=== PATIENT | male | born 1930 | race Caucasian/White ===

== ENCOUNTER 2018-03-15 11:41 | Inpatient (IN) ==
[2018-03-15] MEDS ORDERED: Atropine 1% Opth Drops 100 DROP/5 ML BOTTLE OP SCH (16:06)
[2018-03-15] MEDS: Maxitrol OPTH SUSP 5 ML BOTTLE LEFT EYE SCH ×2 (17:31→20:28)
[2018-03-15] MEDS: Furosemide 20 MG TABLET PO SCH (17:31)
[2018-03-15] MEDS: *HR* OxyCODONE/APAP 5/325 TABLET PO PRN (17:31)
[2018-03-15] MEDS: Sucralfate 1 GM TABLET PO SCH ×2 (17:31→20:43)
[2018-03-15] MEDS: traMADol 50 MG TABLET PO PRN (20:43)
[2018-03-15] MEDS: Melatonin 3 MG TABLET PO PRN (20:43)
[2018-03-15] MEDS: Metoprolol XL (24 HR) Succ 25 MG TAB.ER.24H PO SCH (20:43)
[2018-03-15] MEDS ORDERED: PrednisoLONE Acetate 1% Opth 5 ML BOTTLE LEFT EYE SCH (21:00)
[2018-03-16 06:06] LABS: Basophils % 0.6 %; Eosinophils # 0.2 K/mcL (0.0-0.6); Eosinophils % 4.7 %; Hematocrit 25.6 % (37.5-50.1); Hemoglobin 8.8 g/dL (12.9-16.9); Immature Granulocytes % 0.4 % (0-4); Lymphocytes # 0.5 K/mcL (0.6-4.6); Lymphocytes % 11.1 %; Mean Corpuscular HGB Conc 34.4 g/dL (31.6-35.5); Mean Corpuscular Hemoglobin 31.8 pg (28.0-33.3); Mean Corpuscular Volume 92.4 fL (83.0-100.0); Mean Platelet Volume 9.9 fL (9.4-12.4); Monocytes # 0.5 K/mcL (0.0-1.3); Monocytes % 9.2 %; Neutrophils # 3.6 K/mcL (1.6-8.9); Platelet Count 127 K/mcL (140-400); Red Blood Count 2.77 M/mcL (4.19-5.50); Red Cell Distribution Width 14.1 % (11.5-14.5)
[2018-03-16 06:19] LABS: INR 1.2
[2018-03-16 06:22] LABS: Activated Partial Thrombo Time 29.8 Seconds (26.0-36.0)
[2018-03-16 06:31] LABS: BUN/Creatinine Ratio 24 (6-26); Blood Urea Nitrogen 30 mg/dL (8-23); Calcium 8.6 mg/dL (8.6-10.3); Carbon Dioxide 25 mEq/L (23-29); Chloride 98 mEq/L (98-107); Glucose 92 mg/dL (70-105); Osmolality,Calculated 274 (280-300); Potassium 4.3 mEq/L (3.5-5.1); Sodium 129 mEq/L (136-145); eGFR For Non-African Americans 56 (> 60)
[2018-03-16] MEDS: Furosemide 20 MG TABLET PO SCH ×2 (08:14→16:05)
[2018-03-16] MEDS: Metoprolol XL (24 HR) Succ 25 MG TAB.ER.24H PO SCH ×2 (08:14→20:50)
[2018-03-16] MEDS: Sucralfate 1 GM TABLET PO SCH ×4 (08:15→20:50)
[2018-03-16] MEDS: Maxitrol OPTH SUSP 5 ML BOTTLE LEFT EYE SCH ×4 (08:16→20:50)
[2018-03-16] MEDS ORDERED: Metoprolol XL (24 HR) Succ 25 MG TAB.ER.24H PO SCH (09:00)
--- NOTE | 2018-03-16 14:07 | Internal Med History&Physical ---
Date of Encounter: 03/16/18 Time of Encounter: 13:40 Assessment and Plan (1) Hip fracture Current visit: No Status: Acute Status post IM nailing repair. PT and OT interventions will be ordered. He will be started on Xarelto for DVT prophylaxis. Qualifiers: Encounter type: initial encounter Fracture type: closed Laterality: right Qualified Code(s): S72.001A - Fracture of unspecified part of neck of right femur, initial encounter for closed fracture (2) CKD (chronic kidney disease) stage 3, GFR 30-59 ml/min Current visit: Yes Status: Chronic Monitor renal indices. (3) Hypertension Current visit: No Status: Chronic Continue lisinopril and monitor blood pressure. Qualifiers: Hypertension type: essential hypertension Qualified Code(s): I10 - Essential (primary) hypertension (4) Dementia Current visit: No Status: Chronic Continue Aricept and Namenda Qualifiers: Dementia type: vascular dementia Dementia behavioral disturbance: without behavioral disturbance Qualified Code(s): F01.50 - Vascular dementia without behavioral disturbance (5) Atrial fibrillation Current visit: No Status: Chronic He is not on OAC. Start Xarelto for AF and DVT prophylaxis. Qualifiers: Atrial fibrillation type: persistent Qualified Code(s): I48.1 - Persistent atrial fibrillation (6) CHF (congestive heart failure) Current visit: No Status: Chronic Check BN peptide in a.m. Qualifiers: Heart failure type: diastolic Heart failure chronicity: chronic Qualified Code(s): I50.32 - Chronic diastolic (congestive) heart failure (7) Anemia Current visit: No Status: Acute Order anemia testing in a.m. Qualifiers: Anemia type: unspecified type Qualified Code(s): D64.9 - Anemia, unspecified (8) Urinary retention Current visit: Yes Status: Acute Present secondary to BPH. He was started on Flomax at [facility]. Dose will be incr eased and Proscar will be added. Internal Medicine - H&P: HPI Chief complaint: Hip fracture Admitted From: Hospital to Hospital Transfer Plans for Post Hospital Care: Home History of present illness: Mr. Sands is a 87 year old male who was transferred to [facility] swing bed after March 08 hospitalization at [facility] for right hip fracture from a fall. He underwent intramedullary nail fixation by Dr. Gottlieb. His postop course was pertinent for anemia requiring 2 units packed red blood cells transfusion. He also developed MIRIAM and required IV fluids and Negro catheter. He was discharged to [facility] swing bed for therapy prior to returning to independent living at home. [place] skeletal history is positive for previous remote right wrist fracture with nonsurgical intervention. He denies other bone joint or muscle disorders. Past Med Surg Social Fam HX - Past Medical History Medical history: atrial fibrillation, CHF, COPD, dementia, hyperlipidemia, hypertension, myocardial infarction, other Additional medical history: Bleeding ulcer in May 2017. Psychiatric history: no psych history - Past Surgical History Surgical History: no surgical history Additional surgical history: Eye surgery for detatched retina/cateract beginning of February 2018 - Social History Smoking Status: Never smoker Smokeless Tobacco Status: No Alcohol use: occasionally Drug use: none - Family History Mother History Unknown: Yes Internal Medicine - H&P: Meds Potassium Chloride [K-Tab ER] 20 meq PO DAILY 05/19/16 [History] Furosemide [Lasix] 20 mg PO BID #30 tablet 05/23/16 [Rx] Atorvastatin Calcium [Lipitor] 20 mg PO HS 05/07/17 [History] Donepezil [Aricept] 10 mg PO HS 05/07/17 [History] Metoprolol XL (24 HR) Succ [Toprol Xl] 25 mg PO BID 05/07/17 [History] Omeprazole [PriLOSEC] 40 mg PO BID #60 capsule. 06/29/17 [Rx] Sucralfate [Carafate] 1 gm PO QIDAC #90 tablet 06/29/17 [Rx] Lisinopril [Zestril] 10 mg PO DAILY 03/08/18 [History] Memantine HCl 10 mg PO BID 03/08/18 [History] Aspirin Enteric Coated [Aspirin EC] 162 mg PO DAILY tablet. 03/15/18 [Rx] Melatonin 3 mg PO HS PRN tablet 03/15/18 [Rx] Elian/Poly/Dex Opth SUSP [Maxitrol OPTH SUSP] 1 drop LEFT EYE TID bottle 03/15/18 [Rx] Tamsulosin [Flomax] 0.4 mg PO DAILY capsule 03/15/18 [Rx] Allergy/AdvReac Type Severity Reaction Status Date / Time No Known Allergies Allergy Verified 06/24/17 10:02 All Systems PM: A 10-system review of systems was performed and is negative for pertinent findings except as documented above in the HPI. Review of systems: Gen.: His weight has been stable for several months Cardiovascular: He has history of hypertension and chronic atrial fibrillation. He has had elevated BN peptide but denies a diagnosis of heart failure. No echocardiogram has been done. He denies DVT pulmonary embolus OR or angina on exertion. Respiratory: He smoked from approximately age [age] up to 3 packs per day. He denies chronic lung disease and does not use home oxygen. GI: He denies disorders of his liver gallbladder or exocrine pancreas : He had acute kidney injury during his recent [facility] stay. He appears to have chronic kidney disease stage II-III from review of labs since March 2016. He required Negro catheter insertion at [facility]. He denies known prostate disorders. Neurologic: He has a diagnosis of dementia. He denies large distribution strokes or seizures. Endocrine: He denies diabetes or thyroid disease. He has history of hyperlipidemia Hematology/oncology: He was unaware he had anemia on all labs in the past 2 years. He denies internal malignancies or other blood disorders. Psychiatric: He denies anxiety depression or other mental health issues Musko skeletal: As per history of present illness - Constitutional Vitals: Temp Pulse Resp BP Pulse Ox 98.1 F 86 16 117/61 93 03/16/18 06:42 03/16/18 06:42 03/16/18 06:42 03/16/18 06:42 03/16/18 06:42 Exam: Gen.: He is a well developed well-nourished male resting comfortably in bed who appears in no acute distress HEENT: Head is atraumatic and normocephalic. Eyes: EOMI. There is no scleral icterus. Mouth: Mucosa is moist. Neck: Supple and nontender. There is no thyromegaly or adenopathy noted. Heart: Irregularly irregular without murmurs or gallops Lungs: No wheezes or crackles are heard. Abdomen: Soft and nontender. No masses or guarding are noted. Extremities: There is no cyanosis edema or clubbing noted of his left leg. The right leg shows 1+ edema of the dorsum of the foot and lower anterior blanco. He has minimal DJD changes of his hands. Neurologic: Mental status: He is talkative and an appropriate historian. Cranial nerves: Smile is symmetric. Forehead wrinkles bilaterally. Tongue protrudes midline. EOMI. Motor: There is no pronator drift. Cerebellar: Finger to nose is intact bilaterally. Skin: Warm and dry Internal Med - H&P Results - Labs CBC & Chem 7: 03/16/18 05:33 03/16/18 05:33 Labs: Short CBC 03/16/18 Range/Units 05:33 WBC 4.9 (4.3-11.1) K/mcL Hgb 8.8 L (12.9-16.9) g/dL Hct 25.6 L (37.5-50.1) % Plt Count 127 L (140-400) K/mcL Neutrophils # 3.6 (1.6-8.9) K/mcL BMP 03/16/18 05:33 Sodium 129 L Potassium 4.3 Chloride 98 Carbon Dioxide 25 BUN 30 H Creatinine 1.23 Glucose 92 Calcium 8.6
[2018-03-16] MEDS: traMADol 50 MG TABLET PO PRN ×2 (16:05→20:52)
[2018-03-16] MEDS: Finasteride 5 MG TABLET PO SCH (18:23)
[2018-03-16] MEDS: *HR* Rivaroxaban 10 MG TABLET PO SCH (18:23)
[2018-03-16] MEDS: Melatonin 3 MG TABLET PO PRN (20:50)
[2018-03-17 05:05] LABS: Basophils % 0.4 %; Eosinophils # 0.2 K/mcL (0.0-0.6); Eosinophils % 3.2 %; Hematocrit 26.7 % (37.5-50.1); Hemoglobin 9.1 g/dL (12.9-16.9); Immature Granulocytes % 0.8 % (0-4); Lymphocytes # 0.5 K/mcL (0.6-4.6); Lymphocytes % 11.1 %; Mean Corpuscular HGB Conc 34.1 g/dL (31.6-35.5); Mean Corpuscular Hemoglobin 31.7 pg (28.0-33.3); Mean Platelet Volume 10.2 fL (9.4-12.4); Monocytes # 0.4 K/mcL (0.0-1.3); Monocytes % 8.4 %; Neutrophils # 3.6 K/mcL (1.6-8.9); Platelet Count 141 K/mcL (140-400); Red Blood Count 2.87 M/mcL (4.19-5.50); Red Cell Distribution Width 14.2 % (11.5-14.5); Segmented Neutrophils % 76.1 %
[2018-03-17 05:33] LABS: Alanine Aminotransferase 4 Units/L (7-52); Albumin 3.6 g/dL (3.5-5.7); Albumin/Globulin Ratio 1.6 (1.1-2.2); Alkaline Phosphatase 52 Units/L (34-104); Aspartate Amino Transferase 14 Units/L (13-39); BUN/Creatinine Ratio 27 (6-26); Bilirubin,Total 1.1 mg/dL (0.3-1.0); Blood Urea Nitrogen 34 mg/dL (8-23); Calcium 8.8 mg/dL (8.6-10.3); Carbon Dioxide 26 mEq/L (23-29); Chloride 98 mEq/L (98-107); Globulin 2.3 g/dL (2.4-3.5); Glucose 98 mg/dL (70-105); Osmolality,Calculated 276 (280-300); Potassium 4.5 mEq/L (3.5-5.1); Sodium 129 mEq/L (136-145); Total Protein 5.9 g/dL (6.4-8.9); eGFR For Non-African Americans 55 (> 60)
[2018-03-17] MEDS: Sucralfate 1 GM TABLET PO SCH ×2 (08:01→15:35)
[2018-03-17] MEDS: Maxitrol OPTH SUSP 5 ML BOTTLE LEFT EYE SCH ×4 (08:02→20:18)
[2018-03-17] MEDS: Furosemide 20 MG TABLET PO SCH (08:02)
[2018-03-17] MEDS: Metoprolol XL (24 HR) Succ 25 MG TAB.ER.24H PO SCH ×2 (08:04→20:18)
[2018-03-17] MEDS: Finasteride 5 MG TABLET PO SCH (08:06)
[2018-03-17 08:58] LABS: % Iron Saturation 17 % (20-55); Iron 40 mcg/dL (65-175); Transferrin 172 mg/dL (203-362)
[2018-03-17 09:16] LABS: Ferritin 172 ng/mL (20-250)
[2018-03-17 09:21] LABS: Folate 11.2 ng/mL (3.0-16.0)
[2018-03-17] MEDS ORDERED: Cyanocobalamin (B-12) 1,000 MCG/ML VIAL IM ONE (11:42)
[2018-03-17] MEDS: *HR* OxyCODONE/APAP 5/325 TABLET PO PRN ×2 (11:48→18:57)
--- NOTE | 2018-03-17 11:50 | Internal Med Progress Note ---
Date of Encounter: 03/17/18 Time of Encounter: 11:40 - Assessment and plan (1) Hip fracture Current Visit: No Status: Acute Assessment and plan: March 17. Status post IM nailing repair. Continue PT and OT intervention with Xarelto. Qualifiers: Encounter type: initial encounter Fracture type: closed Laterality: right Qualified Code(s): S72.001A - Fracture of unspecified part of neck of right femur, initial encounter for closed fracture (2) CKD (chronic kidney disease) stage 3, GFR 30-59 ml/min Current Visit: Yes Status: Chronic Assessment and plan: March 17. Monitor renal indices. (3) Hypertension Current Visit: No Status: Chronic Assessment and plan: March 17. Continue lisinopril and metoprolol and monitor blood pressure. Qualifiers: Hypertension type: essential hypertension Qualified Code(s): I10 - Essential (primary) hypertension (4) Dementia Current Visit: No Status: Chronic Assessment and plan: March 17. Continue Aricept and Namenda Qualifiers: Dementia type: vascular dementia Dementia behavioral disturbance: without behavioral disturbance Qualified Code(s): F01.50 - Vascular dementia without behavioral disturbance (5) Atrial fibrillation Current Visit: No Status: Chronic Assessment and plan: March 17. Continue Xarelto and metoprolol. Qualifiers: Atrial fibrillation type: persistent Qualified Code(s): I48.1 - Persistent atrial fibrillation (6) CHF (congestive heart failure) Current Visit: No Status: Chronic Assessment and plan: March 17. BN peptide pending. Reduce Lasix to 20 mg daily because of azotemia. Qualifiers: Heart failure type: diastolic Heart failure chronicity: chronic Qualified Code(s): I50.32 - Chronic diastolic (congestive) heart failure (7) Anemia Current Visit: No Status: Acute Assessment and plan: March 17. Anemia testing showed iron 40, transferrin saturation 70%, transferrin 172, ferritin 172, B12 239, and folate 11.2. He will be given a B12 injection and started on oral B12 supplement. Ferrous sulfate and ascorbic acid will also be started. Qualifiers: Anemia type: unspecified type Qualified Code(s): D64.9 - Anemia, unspe cified (8) Urinary retention Current Visit: Yes Status: Acute Assessment and plan: March 17. Continue Proscar and Flomax. Attempt discontinuation of catheter tomorrow. - Subjective Interval history: March 17. He has no new complaints. He states he feels the urge to urinate but had forgotten he had a Negro catheter in place. - Constitutional Vitals: Temp Pulse Resp BP Pulse Ox 98.2 F 77 17 131/54 94 03/17/18 06:36 03/17/18 06:36 03/17/18 06:36 03/17/18 06:36 03/17/18 08:15 Exam: He is sitting in a chair at bedside resting comfortably and appears in no acute distress. His affect is overall cheerful. Edema in his right leg is not changed. There is no left leg edema. I reviewed his medications and lab results. Internal Medicine: Result - Labs CBC & Chem 7: 03/17/18 04:31 03/17/18 04:31 Labs: Short CBC 03/17/18 Range/Units 04:31 WBC 4.8 (4.3-11.1) K/mcL Hgb 9.1 L (12.9-16.9) g/dL Hct 26.7 L (37.5-50.1) % Plt Count 141 (140-400) K/mcL Neutrophils # 3.6 (1.6-8.9) K/mcL BMP 03/17/18 04:31 Sodium 129 L Potassium 4.5 Chloride 98 Carbon Dioxide 26 BUN 34 H Creatinine 1.25 Glucose 98 Calcium 8.8 Liver Function 03/17/18 Range/Units 04:31 Total Bilirubin 1.1 H (0.3-1.0) mg/dL AST 14 (13-39) Units/L ALT 4 L (7-52) Units/L Alkaline Phosphatase 52 (34-104) Units/L Albumin 3.6 (3.5-5.7) g/dL - ABG Interpretation ABG results: PT/INR, D-dimer PT 13.0 Seconds (9.4-12.1) H 03/16/18 05:33 Consult Discharge Plan - Plan Referrals: NONE,PCP [Primary Care Provider] - 1 week
[2018-03-17] MEDS: *HR* Rivaroxaban 10 MG TABLET PO SCH (16:57)
[2018-03-17] MEDS: Melatonin 3 MG TABLET PO PRN (20:18)
[2018-03-18] MEDS: Ascorbic Acid 500 MG TABLET PO SCH (06:55)
[2018-03-18] MEDS: Metoprolol XL (24 HR) Succ 25 MG TAB.ER.24H PO SCH ×2 (09:14→20:27)
[2018-03-18] MEDS: Furosemide 20 MG TABLET PO SCH (09:16)
[2018-03-18] MEDS: Finasteride 5 MG TABLET PO SCH (09:16)
[2018-03-18] MEDS: Cyanocobalamin (B-12) 1,000 MCG TABLET PO SCH (09:17)
[2018-03-18] MEDS: Maxitrol OPTH SUSP 5 ML BOTTLE LEFT EYE SCH ×4 (09:18→20:27)
[2018-03-18] MEDS: *HR* OxyCODONE/APAP 5/325 TABLET PO PRN ×2 (11:53→23:35)
[2018-03-18] MEDS: *HR* Rivaroxaban 10 MG TABLET PO SCH (17:36)
[2018-03-18] MEDS: Melatonin 3 MG TABLET PO PRN (23:36)
[2018-03-18] MEDS ORDERED: Albuterol 2.5 MG/3 ML NEBULIZER IH PRN (23:54)
[2018-03-18] MEDS ORDERED: Benzonatate 100 MG CAPSULE PO PRN (23:55)
[2018-03-19] MEDS: Ascorbic Acid 500 MG TABLET PO SCH (06:44)
[2018-03-19 06:57] LABS: Basophils % 0.3 %; Eosinophils # 0.1 K/mcL (0.0-0.6); Eosinophils % 1.9 %; Hematocrit 27.5 % (37.5-50.1); Immature Granulocytes % 0.3 % (0-4); Lymphocytes # 0.6 K/mcL (0.6-4.6); Lymphocytes % 8.8 %; Mean Corpuscular HGB Conc 32.7 g/dL (31.6-35.5); Mean Corpuscular Hemoglobin 31.5 pg (28.0-33.3); Mean Corpuscular Volume 96.2 fL (83.0-100.0); Mean Platelet Volume 9.8 fL (9.4-12.4); Monocytes # 0.5 K/mcL (0.0-1.3); Monocytes % 7.7 %; Neutrophils # 5.1 K/mcL (1.6-8.9); Platelet Count 146 K/mcL (140-400); Red Blood Count 2.86 M/mcL (4.19-5.50); Red Cell Distribution Width 14.2 % (11.5-14.5)
[2018-03-19] MEDS: Cyanocobalamin (B-12) 1,000 MCG TABLET PO SCH (08:31)
[2018-03-19] MEDS: Furosemide 20 MG TABLET PO SCH (08:31)
[2018-03-19] MEDS: *HR* OxyCODONE/APAP 5/325 TABLET PO PRN ×2 (08:32→18:51)
[2018-03-19] MEDS: Finasteride 5 MG TABLET PO SCH (08:32)
[2018-03-19] MEDS: Metoprolol XL (24 HR) Succ 25 MG TAB.ER.24H PO SCH ×2 (08:33→20:56)
[2018-03-19] MEDS: Maxitrol OPTH SUSP 5 ML BOTTLE LEFT EYE SCH ×4 (08:35→20:57)
[2018-03-19] MEDS: traMADol 50 MG TABLET PO PRN (11:38)
--- NOTE | 2018-03-19 15:32 | Internal Med Progress Note ---
Date of Encounter: 03/19/18 Time of Encounter: 15:25 - Assessment and plan (1) Hip fracture Current Visit: No Status: Acute Assessment and plan: March 17. Status post IM nailing repair. Continue PT and OT intervention with Xarelto. Qualifiers: Encounter type: initial encounter Fracture type: closed Laterality: right Qualified Code(s): S72.001A - Fracture of unspecified part of neck of right femur, initial encounter for closed fracture (2) CKD (chronic kidney disease) stage 3, GFR 30-59 ml/min Current Visit: Yes Status: Chronic Assessment and plan: March 17. Monitor renal indices. (3) Hypertension Current Visit: No Status: Chronic Assessment and plan: March 17. Continue lisinopril and metoprolol and monitor blood pressure. Qualifiers: Hypertension type: essential hypertension Qualified Code(s): I10 - Essential (primary) hypertension (4) Dementia Current Visit: No Status: Chronic Assessment and plan: March 17. Continue Aricept and Namenda Qualifiers: Dementia type: vascular dementia Dementia behavioral disturbance: without behavioral disturbance Qualified Code(s): F01.50 - Vascular dementia without behavioral disturbance (5) Atrial fibrillation Current Visit: No Status: Chronic Assessment and plan: March 17. Continue Xarelto and metoprolol. Qualifiers: Atrial fibrillation type: persistent Qualified Code(s): I48.1 - Persistent atrial fibrillation (6) CHF (congestive heart failure) Current Visit: No Status: Chronic Assessment and plan: March 17. BN peptide pending. Reduce Lasix to 20 mg daily because of azotemia. March 19. Review of [place] archives show echocardiogram 05/08/2017 with LVEF of 55%. There was mild concentric LVH with the interventricular septum and posterior wall thickness measurements elevated at 1.36 and 1.37 cm respectively. There was LAE at 4.20 cm. There was reported severe BERNIE without measurement recorded. E/A ratio could not be done because of atrial fibrillation. There was elevated RVSP estimated at 56 mmHg. He is asymptomatic at present. Continue present regimen. Qualifiers: Heart failure type: diastolic Heart failure chronicity: chronic Qualified Code(s): I50.32 - Chronic diastolic (congestive) heart failure (7) Anemia Current Visit: No Status: Acute Assessment and plan: March 17. Anemia testing showed iron 40, transferrin saturation 70%, transferrin 172, ferritin 172, B12 239, and folate 11.2. He will be given a B12 injection and started on oral B12 supplement. Ferrous sulfate and ascorbic acid will also be started. March 19. Monitor CBC. Continue ferrous sulfate and ascorbic acid with oral B12 supplement. Qualifiers: Anemia type: unspecified type Qualified Code(s): D64.9 - Anemia, unspecified (8) Urinary retention Current Visit: Yes Status: Acute Assessment and plan: March 17. Continue Proscar and Flomax. Attempt discontinuation of catheter tomorrow. - Subjective Interval history: March 17. He has no new complaints. He states he feels the urge to urinate but had forgotten he had a Negro catheter in place. March 19. He has no new complaints. He denies pain. - Constitutional Vitals: Temp Pulse Resp BP Pulse Ox 97.9 F 75 18 136/61 99 03/19/18 06:47 03/19/18 06:47 03/19/18 06:47 03/19/18 06:47 03/19/18 06:47 Exam: He is resting comfortably in bed and appears in no acute distress. His affect is bright and cheerful. I reviewed his medications and lab results. Internal Medicine: Result - Labs CBC & Chem 7: 03/19/18 06:39 03/17/18 04:31 Labs: Short CBC 03/19/18 Range/Units 06:39 WBC 6.2 (4.3-11.1) K/mcL Hgb 9.0 L (12.9-16.9) g/dL Hct 27.5 L (37.5-50.1) % Plt Count 146 (140-400) K/mcL Neutrophils # 5.1 (1.6-8.9) K/mcL - ABG Interpretation ABG results: PT/INR, D-dimer PT 13.0 Seconds (9.4-12.1) H 03/16/18 05:33 Consult Discharge Plan - Plan Referrals: NONE,PCP [Primary Care Provider] - 1 week
[2018-03-19] MEDS: *HR* Rivaroxaban 10 MG TABLET PO SCH (17:35)
[2018-03-19] MEDS: Melatonin 3 MG TABLET PO PRN (20:56)
[2018-03-20] MEDS: *HR* OxyCODONE/APAP 5/325 TABLET PO PRN ×4 (03:48→21:28)
[2018-03-20] MEDS: Ascorbic Acid 500 MG TABLET PO SCH (06:13)
[2018-03-20] MEDS: Furosemide 20 MG TABLET PO SCH (08:10)
[2018-03-20] MEDS: Finasteride 5 MG TABLET PO SCH (08:11)
[2018-03-20] MEDS: Cyanocobalamin (B-12) 1,000 MCG TABLET PO SCH (08:11)
[2018-03-20] MEDS: Metoprolol XL (24 HR) Succ 25 MG TAB.ER.24H PO SCH ×2 (08:11→21:29)
[2018-03-20] MEDS: Maxitrol OPTH SUSP 5 ML BOTTLE LEFT EYE SCH ×4 (08:16→21:29)
[2018-03-20] MEDS: *HR* Rivaroxaban 10 MG TABLET PO SCH (16:23)
[2018-03-20] MEDS: Melatonin 3 MG TABLET PO PRN (21:29)
[2018-03-21] MEDS: traMADol 50 MG TABLET PO PRN (05:56)
[2018-03-21] MEDS: Ascorbic Acid 500 MG TABLET PO SCH (05:57)
[2018-03-21] MEDS: *HR* OxyCODONE/APAP 5/325 TABLET PO PRN ×4 (07:23→21:37)
[2018-03-21] MEDS: Furosemide 20 MG TABLET PO SCH (09:43)
[2018-03-21] MEDS: Maxitrol OPTH SUSP 5 ML BOTTLE LEFT EYE SCH ×4 (09:44→21:56)
[2018-03-21] MEDS: Finasteride 5 MG TABLET PO SCH (09:48)
[2018-03-21] MEDS: Metoprolol XL (24 HR) Succ 25 MG TAB.ER.24H PO SCH ×2 (09:49→21:37)
[2018-03-21] MEDS: Cyanocobalamin (B-12) 1,000 MCG TABLET PO SCH (09:50)
[2018-03-21] MEDS: *HR* Rivaroxaban 10 MG TABLET PO SCH (17:02)
[2018-03-21] MEDS: Melatonin 3 MG TABLET PO PRN (21:37)
[2018-03-22] MEDS ORDERED: Ondansetron ODT 4 MG TAB.RAPDIS SL PRN (01:28)
[2018-03-22 05:31] LABS: Basophils % 0.7 %; Eosinophils # 0.1 K/mcL (0.0-0.6); Hematocrit 27.2 % (37.5-50.1); Hemoglobin 8.8 g/dL (12.9-16.9); Immature Granulocytes % 0.3 % (0-4); Lymphocytes # 0.5 K/mcL (0.6-4.6); Lymphocytes % 8.6 %; Mean Corpuscular HGB Conc 32.4 g/dL (31.6-35.5); Mean Corpuscular Hemoglobin 31.2 pg (28.0-33.3); Mean Corpuscular Volume 96.5 fL (83.0-100.0); Mean Platelet Volume 9.9 fL (9.4-12.4); Monocytes # 0.4 K/mcL (0.0-1.3); Monocytes % 6.1 %; Neutrophils # 4.9 K/mcL (1.6-8.9); Platelet Count 163 K/mcL (140-400); Red Blood Count 2.82 M/mcL (4.19-5.50); Red Cell Distribution Width 14.5 % (11.5-14.5); Segmented Neutrophils % 82.3 %
[2018-03-22 05:53] LABS: Calcium 9.1 mg/dL (8.6-10.3); Potassium 6.1 mEq/L (3.5-5.1)
[2018-03-22] MEDS: traMADol 50 MG TABLET PO PRN (06:43)
[2018-03-22] MEDS: Ascorbic Acid 500 MG TABLET PO SCH (06:44)
[2018-03-22] MEDS: Metoprolol XL (24 HR) Succ 25 MG TAB.ER.24H PO SCH ×2 (07:31→20:13)
[2018-03-22] MEDS: Furosemide 20 MG TABLET PO SCH (07:31)
[2018-03-22] MEDS: Cyanocobalamin (B-12) 1,000 MCG TABLET PO SCH (07:31)
[2018-03-22] MEDS: *HR* OxyCODONE/APAP 5/325 TABLET PO PRN ×3 (07:32→17:45)
[2018-03-22] MEDS: Finasteride 5 MG TABLET PO SCH (07:33)
[2018-03-22] MEDS: Maxitrol OPTH SUSP 5 ML BOTTLE LEFT EYE SCH ×2 (07:41→13:27)
--- NOTE | 2018-03-22 11:46 | Internal Med Progress Note ---
Date of Encounter: 03/22/18 Time of Encounter: 11:38 - Assessment and plan (1) Hip fracture Current Visit: No Status: Acute Assessment and plan: March 17. Status post IM nailing repair. Continue PT and OT intervention with Xarelto. Qualifiers: Encounter type: initial encounter Fracture type: closed Laterality: right Qualified Code(s): S72.001A - Fracture of unspecified part of neck of right femur, initial encounter for closed fracture (2) CKD (chronic kidney disease) stage 3, GFR 30-59 ml/min Current Visit: Yes Status: Chronic Assessment and plan: March 17. Monitor renal indices. March 22. Creatinine has risen to 1.85 with estimated GFR decreasing to 35. Discontinue Lasix. Will use WESLEY hose for right leg edema. (3) Hypertension Current Visit: No Status: Chronic Assessment and plan: March 17. Continue lisinopril and metoprolol and monitor blood pressure. Qualifiers: Hypertension type: essential hypertension Qualified Code(s): I10 - Essential (primary) hypertension (4) Dementia Current Visit: No Status: Chronic Assessment and plan: March 17. Continue Aricept and Namenda Qualifiers: Dementia type: vascular dementia Dementia behavioral disturbance: without behavioral disturbance Qualified Code(s): F01.50 - Vascular dementia without behavioral disturbance (5) Atrial fibrillation Current Visit: No Status: Chronic Assessment and plan: March 17. Continue Xarelto and metoprolol. Qualifiers: Atrial fibrillation type: persistent Qualified Code(s): I48.1 - Persistent atrial fibrillation (6) CHF (congestive heart failure) Current Visit: No Status: Chronic Assessment and plan: March 17. BN peptide pending. Reduce Lasix to 20 mg daily because of azotemia. March 19. Review of [place] archives show echocardiogram 05/08/2017 with LVEF of 55%. There was mild concentric LVH with the interventricular septum and posterior wall thickness measurements elevated at 1.36 and 1.37 cm respectively. There was LAE at 4.20 cm. There was reported severe BERNIE without measurement recorded. E/A ratio could not be done because of atrial fibrillation. There was elevated RVSP estimated at 56 mmHg. He is asymptomatic at present. Continue present regimen. Qualifiers: Heart failure type: diastolic Heart failure chronicity: chronic Qualified Code(s): I50.32 - Chronic diastolic (congestive) heart failure (7) Anemia Current Visit: No Status: Acute Assessment and plan: March 17. Anemia testing showed iron 40, transferrin saturation 70%, transferrin 172, ferritin 172, B12 239, and folate 11.2. He will be given a B12 injection and started on oral B12 supplement. Ferrous sulfate and ascorbic acid will also be started. March 19. Monitor CBC. Continue ferrous sulfate and ascorbic acid with oral B12 supplement. March 22. Hemoglobin stable at 8.8. Continue to monitor Qualifiers: Anemia type: unspecified type Qualified Code(s): D64.9 - Anemia, unspecified (8) Urinary retention Current Visit: Yes Status: Acute Assessment and plan: March 17. Continue Proscar and Flomax. Attempt discontinuation of catheter tomorrow. March 22. Voiding without difficulty with Negro catheter discontinued. (9) Hyperkalemia Current Visit: Yes Status: Acute Assessment and plan: March 22. Discontinue supplemental potassium and monitor labs. - Subjective Interval history: March 17. He has no new complaints. He states he feels the urge to urinate but had forgotten he had a Negro catheter in place. March 19. He has no new complaints. He denies pain. March 22. He has no new complaints. He feels he is getting stronger. - Constitutional Vitals: Temp Pulse Resp BP Pulse Ox 98.3 F 82 16 142/56 99 03/22/18 06:59 03/22/18 06:59 03/22/18 06:59 03/22/18 06:59 03/22/18 06:59 Exam: He is resting comfortably on the side of the bed and appears in no acute distress. His affect is bright and cheerful. Heart is irregularly irregular. Lungs are clear. Extremities show 1-2+ edema of the right leg and none of the left leg. I reviewed his medications and lab results. Internal Medicine: Result - Labs CBC & Chem 7: 03/22/18 05:00 03/22/18 05:00 Labs: Short CBC 03/22/18 Range/Units 05:00 WBC 5.9 (4.3-11.1) K/mcL Hgb 8.8 L (12.9-16.9) g/dL Hct 27.2 L (37.5-50.1) % Plt Count 163 (140-400) K/mcL Neutrophils # 4.9 (1.6-8.9) K/mcL BMP 03/22/18 05:00 Sodium 131 L Potassium 6.1 H Chloride 98 Carbon Dioxide 26 BUN 42 H Creatinine 1.85 H Glucose 103 Calcium 9.1 - ABG Interpretation ABG results: PT/INR, D-dimer PT 13.0 Seconds (9.4-12.1) H 03/16/18 05:33 Consult Discharge Plan - Plan Referrals: NONE,PCP [Primary Care Provider] - 1 week
[2018-03-22] MEDS: *HR* Rivaroxaban 10 MG TABLET PO SCH (17:45)
[2018-03-22] MEDS: Melatonin 3 MG TABLET PO PRN (22:32)
[2018-03-23] MEDS: Ascorbic Acid 500 MG TABLET PO SCH (05:36)
[2018-03-23] MEDS: Metoprolol XL (24 HR) Succ 25 MG TAB.ER.24H PO SCH ×2 (08:25→19:45)
[2018-03-23] MEDS: Cyanocobalamin (B-12) 1,000 MCG TABLET PO SCH (08:25)
[2018-03-23] MEDS: Maxitrol OPTH SUSP 5 ML BOTTLE LEFT EYE SCH (08:25)
[2018-03-23] MEDS: Finasteride 5 MG TABLET PO SCH (08:26)
[2018-03-23] MEDS: traMADol 50 MG TABLET PO PRN (14:19)
[2018-03-23] MEDS: *HR* Rivaroxaban 10 MG TABLET PO SCH (17:31)
[2018-03-23] MEDS: Melatonin 3 MG TABLET PO PRN (19:45)
[2018-03-24 05:32] LABS: Basophils % 0.5 %; Eosinophils # 0.1 K/mcL (0.0-0.6); Eosinophils % 2.6 %; Hematocrit 25.5 % (37.5-50.1); Hemoglobin 8.2 g/dL (12.9-16.9); Immature Granulocytes % 0.5 % (0-4); Lymphocytes # 0.5 K/mcL (0.6-4.6); Lymphocytes % 10.8 %; Mean Corpuscular HGB Conc 32.2 g/dL (31.6-35.5); Mean Corpuscular Hemoglobin 30.9 pg (28.0-33.3); Mean Corpuscular Volume 96.2 fL (83.0-100.0); Mean Platelet Volume 9.8 fL (9.4-12.4); Monocytes # 0.3 K/mcL (0.0-1.3); Monocytes % 7.3 %; Neutrophils # 3.3 K/mcL (1.6-8.9); Platelet Count 147 K/mcL (140-400); Red Blood Count 2.65 M/mcL (4.19-5.50); Red Cell Distribution Width 14.3 % (11.5-14.5); Segmented Neutrophils % 78.3 %
[2018-03-24] MEDS: Ascorbic Acid 500 MG TABLET PO SCH (06:11)
[2018-03-24 06:32] LABS: BUN/Creatinine Ratio 27 (6-26); Blood Urea Nitrogen 33 mg/dL (8-23); Calcium 9.1 mg/dL (8.6-10.3); Carbon Dioxide 28 mEq/L (23-29); Chloride 103 mEq/L (98-107); Glucose 97 mg/dL (70-105); Osmolality,Calculated 283 (280-300); Potassium 5.4 mEq/L (3.5-5.1); Sodium 133 mEq/L (136-145); eGFR For Non-African Americans 56 (> 60)
[2018-03-24] MEDS: Maxitrol OPTH SUSP 5 ML BOTTLE LEFT EYE SCH (08:18)
[2018-03-24] MEDS: Finasteride 5 MG TABLET PO SCH (08:21)
[2018-03-24] MEDS: Cyanocobalamin (B-12) 1,000 MCG TABLET PO SCH (08:21)
[2018-03-24] MEDS: Metoprolol XL (24 HR) Succ 25 MG TAB.ER.24H PO SCH ×2 (08:21→20:37)
[2018-03-24] MEDS: *HR* OxyCODONE/APAP 5/325 TABLET PO PRN ×2 (09:56→20:36)
--- NOTE | 2018-03-24 10:58 | Internal Med Progress Note ---
Date of Encounter: 03/24/18 Time of Encounter: 10:50 - Assessment and plan (1) Hip fracture Current Visit: No Status: Acute Assessment and plan: March 17. Status post IM nailing repair. Continue PT and OT intervention with Xarelto. March 24. Continue therapy, Xarelto, and WESLEY hose. Qualifiers: Encounter type: initial encounter Fracture type: closed Laterality: right Qualified Code(s): S72.001A - Fracture of unspecified part of neck of right femur, initial encounter for closed fracture (2) CKD (chronic kidney disease) stage 3, GFR 30-59 ml/min Current Visit: Yes Status: Chronic Assessment and plan: March 17. Monitor renal indices. March 22. Creatinine has risen to 1.85 with estimated GFR decreasing to 35. Discontinue Lasix. Will use WESLEY hose for right leg edema. March 24. BUN and creatinine are improved to 33 and 1.23 respectively with estimated GFR 56. Continue present regimen. (3) Hypertension Current Visit: No Status: Chronic Assessment and plan: March 17. Continue lisinopril and metoprolol and monitor blood pressure. Qualifiers: Hypertension type: essential hypertension Qualified Code(s): I10 - Essential (primary) hypertension (4) Dementia Current Visit: No Status: Chronic Assessment and plan: March 17. Continue Aricept and Namenda Qualifiers: Dementia type: vascular dementia Dementia behavioral disturbance: without behavioral disturbance Qualified Code(s): F01.50 - Vascular dementia without behavioral disturbance (5) Atrial fibrillation Current Visit: No Status: Chronic Assessment and plan: March 17. Continue Xarelto and metoprolol. Qualifiers: Atrial fibrillation type: persistent Qualified Code(s): I48.1 - Persistent atrial fibrillation (6) CHF (congestive heart failure) Current Visit: No Status: Chronic Assessment and plan: March 17. BN peptide pending. Reduce Lasix to 20 mg daily because of azotemia. March 19. Review of [place] archives show echocardiogram 05/08/2017 with LVEF of 55%. There was mild concentric LVH with the interventricular septum and posterior wall thickness measurements elevated at 1.36 and 1.37 cm respectively. There was LAE at 4.20 cm. There was reported severe BERNIE without measurement recorded. E/A ratio could not be done because of atrial fibrillation. There was elevated RVSP estimated at 56 mmHg. He is asymptomatic at present. Contin ue present regimen. Qualifiers: Heart failure type: diastolic Heart failure chronicity: chronic Qualified Code(s): I50.32 - Chronic diastolic (congestive) heart failure (7) Anemia Current Visit: No Status: Acute Assessment and plan: March 17. Anemia testing showed iron 40, transferrin saturation 70%, transferrin 172, ferritin 172, B12 239, and folate 11.2. He will be given a B12 injection and started on oral B12 supplement. Ferrous sulfate and ascorbic acid will also be started. March 19. Monitor CBC. Continue ferrous sulfate and ascorbic acid with oral B12 supplement. March 22. Hemoglobin stable at 8.8. Continue to monitor March 24. Hemoglobin decreased 8.2. Continue ferrous sulfate with ascorbic acid and monitor CBC. Qualifiers: Anemia type: unspecified type Qualified Code(s): D64.9 - Anemia, unspecified (8) Urinary retention Current Visit: Yes Status: Acute Assessment and plan: March 17. Continue Proscar and Flomax. Attempt discontinuation of catheter tomorrow. March 22. Voiding without difficulty with Negro catheter discontinued. (9) Hyperkalemia Current Visit: Yes Status: Acute Assessment and plan: March 22. Discontinue supplemental potassium and monitor labs. March 24. Potassium decreased to 5.4. Azotemia improved. Continue to monitor. - Subjective Interval history: March 17. He has no new complaints. He states he feels the urge to urinate but had forgotten he had a Negro catheter in place. March 19. He has no new complaints. He denies pain. March 22. He has no new complaints. He feels he is getting stronger. March 24. He has no new complaints and feels better. He denies significant pain in his right hip. Nursing staff reports he has resisted wearing WESLEY hose. - Constitutional Vitals: Temp Pulse Resp BP Pulse Ox 98.6 F 80 18 129/71 98 03/24/18 06:46 03/24/18 06:46 03/24/18 06:46 03/24/18 06:46 03/24/18 06:46 Exam: He is sitting in a chair at bedside resting comfortably. His affect is very cheerful. Left leg shows 0 to trace edema. Right leg shows 1-2+ edema. Heart is irregularly irregular. Lungs are clear. I reviewed his medications and lab results. Internal Medicine: Result - Labs CBC & Chem 7: 03/24/18 05:02 03/24/18 05:02 Labs: Short CBC 03/24/18 Range/Units 05:02 WBC 4.3 (4.3-11.1) K/mcL Hgb 8.2 L (12.9-16.9) g/dL Hct 25.5 L (37.5-50.1) % Plt Count 147 (140-400) K/mcL Neutrophils # 3.3 (1.6-8.9) K/mcL BMP 03/24/18 05:02 Sodium 133 L Potassium 5.4 H Chloride 103 Carbon Dioxide 28 BUN 33 H Creatinine 1.23 Glucose 97 Calcium 9.1 - ABG Interpretation ABG results: PT/INR, D-dimer PT 13.0 Seconds (9.4-12.1) H 03/16/18 05:33 - VTE Documentation of Mechanical Device: Graduated compression elastic hosiery Consult Discharge Plan - Plan Referrals: NONE,PCP [Primary Care Provider] - 1 week
[2018-03-24] MEDS: *HR* Rivaroxaban 10 MG TABLET PO SCH (16:31)
[2018-03-24] MEDS: Melatonin 3 MG TABLET PO PRN (20:36)
[2018-03-25] MEDS: Ascorbic Acid 500 MG TABLET PO SCH (06:14)
[2018-03-25] MEDS: Finasteride 5 MG TABLET PO SCH (09:09)
[2018-03-25] MEDS: Cyanocobalamin (B-12) 1,000 MCG TABLET PO SCH (09:09)
[2018-03-25] MEDS: Metoprolol XL (24 HR) Succ 25 MG TAB.ER.24H PO SCH ×2 (09:10→20:30)
[2018-03-25] MEDS: traMADol 50 MG TABLET PO PRN ×2 (09:14→18:23)
[2018-03-25] MEDS: Maxitrol OPTH SUSP 5 ML BOTTLE LEFT EYE SCH (09:15)
[2018-03-25] MEDS: *HR* Rivaroxaban 10 MG TABLET PO SCH (18:22)
[2018-03-25] MEDS: Melatonin 3 MG TABLET PO PRN (20:31)
[2018-03-25] MEDS: *HR* OxyCODONE/APAP 5/325 TABLET PO PRN (20:32)
[2018-03-26] MEDS: Ascorbic Acid 500 MG TABLET PO SCH (06:51)
[2018-03-26 06:53] LABS: Basophils % 0.5 %; Eosinophils # 0.1 K/mcL (0.0-0.6); Eosinophils % 3.3 %; Hematocrit 26.5 % (37.5-50.1); Hemoglobin 8.7 g/dL (12.9-16.9); Immature Granulocytes % 0.3 % (0-4); Lymphocytes # 0.6 K/mcL (0.6-4.6); Lymphocytes % 16.1 %; Mean Corpuscular HGB Conc 32.8 g/dL (31.6-35.5); Mean Corpuscular Hemoglobin 31.4 pg (28.0-33.3); Mean Corpuscular Volume 95.7 fL (83.0-100.0); Mean Platelet Volume 9.5 fL (9.4-12.4); Monocytes # 0.3 K/mcL (0.0-1.3); Monocytes % 8.4 %; Neutrophils # 2.8 K/mcL (1.6-8.9); Platelet Count 140 K/mcL (140-400); Red Blood Count 2.77 M/mcL (4.19-5.50); Red Cell Distribution Width 14.2 % (11.5-14.5); Segmented Neutrophils % 71.4 %
[2018-03-26 07:13] LABS: BUN/Creatinine Ratio 22 (6-26); Blood Urea Nitrogen 25 mg/dL (8-23); Calcium 9.4 mg/dL (8.6-10.3); Carbon Dioxide 27 mEq/L (23-29); Chloride 102 mEq/L (98-107); Glucose 101 mg/dL (70-105); Osmolality,Calculated 289 (280-300); Potassium 5.3 mEq/L (3.5-5.1); Sodium 137 mEq/L (136-145); eGFR For Non-African Americans 60 (> 60)
[2018-03-26] MEDS: Finasteride 5 MG TABLET PO SCH (09:01)
[2018-03-26] MEDS: Cyanocobalamin (B-12) 1,000 MCG TABLET PO SCH (09:02)
[2018-03-26] MEDS ORDERED: Metoprolol XL (24 HR) Succ 25 MG TAB.ER.24H PO SCH (09:15)
[2018-03-26] MEDS: Maxitrol OPTH SUSP 5 ML BOTTLE LEFT EYE SCH (09:16)
--- NOTE | 2018-03-26 10:28 | Internal Med Progress Note ---
Date of Encounter: 03/26/18 Time of Encounter: 10:20 - Assessment and plan (1) Hip fracture Current Visit: No Status: Acute Assessment and plan: March 17. Status post IM nailing repair. Continue PT and OT intervention with Xarelto. March 24. Continue therapy, Xarelto, and WESLEY hose. Qualifiers: Encounter type: initial encounter Fracture type: closed Laterality: right Qualified Code(s): S72.001A - Fracture of unspecified part of neck of right femur, initial encounter for closed fracture (2) CKD (chronic kidney disease) stage 3, GFR 30-59 ml/min Current Visit: Yes Status: Chronic Assessment and plan: March 17. Monitor renal indices. March 22. Creatinine has risen to 1.85 with estimated GFR decreasing to 35. Discontinue Lasix. Will use WESLEY hose for right leg edema. March 24. BUN and creatinine are improved to 33 and 1.23 respectively with estimated GFR 56. Continue present regimen. March 26. BUN and creatinine are further improved to 25 and 1.16 respectively with estimated GFR 60. Continue present regimen. (3) Hypertension Current Visit: No Status: Chronic Assessment and plan: March 17. Continue lisinopril and metoprolol and monitor blood pressure. March 26. Continue lisinopril. Increase Toprol-XL to 75 mg daily. Qualifiers: Hypertension type: essential hypertension Qualified Code(s): I10 - Essential (primary) hypertension (4) Dementia Current Visit: No Status: Chronic Assessment and plan: March 17. Continue Aricept and Namenda Qualifiers: Dementia type: vascular dementia Dementia behavioral disturbance: without behavioral disturbance Qualified Code(s): F01.50 - Vascular dementia without behavioral disturbance (5) Atrial fibrillation Current Visit: No Status: Chronic Assessment and plan: March 17. Continue Xarelto and metoprolol. Qualifiers: Atrial fibrillation type: persistent Qualified Code(s): I48.1 - Persistent atrial fibrillation (6) CHF (congestive heart failure) Current Visit: No Status: Chronic Assessment and plan: March 17. BN peptide pending. Reduce Lasix to 20 mg daily because of azotemia. March 19. Review of [place] archives show echocardiogram 05/08/2017 with LVEF of 55%. There was mild concentric LVH with the interventricular septum and posterior wall thickness measurements elevated at 1.36 and 1.37 cm respectively. There was LAE at 4.20 cm. There was reported severe BERNIE without measurement recorded. E/A ratio could not be done because of atrial fibrillation. There was elevated RVSP estimated at 56 mmHg. He is asymptomatic at present. Con shira present regimen. March 26. He is asymptomatic however BN peptide has risen to 614. Increase Toprol-XL and start Imdur. Continue lisinopril. Qualifiers: Heart failure type: diastolic Heart failure chronicity: chronic Qualified Code(s): I50.32 - Chronic diastolic (congestive) heart failure (7) Anemia Current Visit: No Status: Acute Assessment and plan: March 17. Anemia testing showed iron 40, transferrin saturation 70%, transferrin 172, ferritin 172, B12 239, and folate 11.2. He will be given a B12 injection and started on oral B12 supplement. Ferrous sulfate and ascorbic acid will also be started. March 19. Monitor CBC. Continue ferrous sulfate and ascorbic acid with oral B12 supplement. March 22. Hemoglobin stable at 8.8. Continue to monitor March 24. Hemoglobin decreased 8.2. Continue ferrous sulfate with ascorbic acid and monitor CBC. Qualifiers: Anemia type: unspecified type Qualified Code(s): D64.9 - Anemia, unspecif ied (8) Urinary retention Current Visit: Yes Status: Acute Assessment and plan: March 17. Continue Proscar and Flomax. Attempt discontinuation of catheter tomorrow. March 22. Voiding without difficulty with Negro catheter discontinued. (9) Hyperkalemia Current Visit: Yes Status: Acute Assessment and plan: March 22. Discontinue supplemental potassium and monitor labs. March 24. Potassium decreased to 5.4. Azotemia improved. Continue to monitor. March 26. Potassium further decreased 5.3. Azotemia improved. Continue present regimen. - Subjective Interval history: March 17. He has no new complaints. He states he feels the urge to urinate but had forgotten he had a Nergo catheter in place. March 19. He has no new complaints. He denies pain. March 22. He has no new complaints. He feels he is getting stronger. March 24. He has no new complaints and feels better. He denies significant pain in his right hip. Nursing staff reports he has resisted wearing WESLEY hose. March 26. He has no new complaints. He denies pain or dyspnea. - Constitutional Vitals: Temp Pulse Resp BP Pulse Ox 98.0 F 84 20 148/70 92 03/26/18 07:09 03/26/18 08:59 03/26/18 07:09 03/26/18 08:59 03/26/18 07:09 Exam: He is resting comfortably in bed and appears in no acute distress. His heart is irregularly irregular. Lungs are clear anteriorly. Extremities show trace to 1+ edema of the right leg and 0 to trace edema of the left leg. I reviewed his medications and lab results. Internal Medicine: Result - Labs CBC & Chem 7: 03/26/18 06:44 03/26/18 06:44 Labs: Short CBC 03/26/18 Range/Units 06:44 WBC 3.9 L (4.3-11.1) K/mcL Hgb 8.7 L (12.9-16.9) g/dL Hct 26.5 L (37.5-50.1) % Plt Count 140 (140-400) K/mcL Neutrophils # 2.8 (1.6-8.9) K/mcL BMP 03/26/18 06:44 Sodium 137 Potassium 5.3 H Chloride 102 Carbon Dioxide 27 BUN 25 H Creatinine 1.16 Glucose 101 Calcium 9.4 - ABG Interpretation ABG results: PT/INR, D-dimer PT 13.0 Seconds (9.4-12.1) H 03/16/18 05:33 - VTE Documentation of Mechanical Device: Graduated compression elastic hosiery Consult Discharge Plan - Plan Referrals: NONE,PCP [Primary Care Provider] - 1 week
[2018-03-26] MEDS: Isosorbide MONOnitrate (24 HR) 30 MG TAB.ER.24H PO SCH (14:58)
[2018-03-26] MEDS: *HR* Rivaroxaban 10 MG TABLET PO SCH (16:50)
[2018-03-26] MEDS: Melatonin 3 MG TABLET PO PRN (20:31)
[2018-03-26] MEDS: *HR* OxyCODONE/APAP 5/325 TABLET PO PRN (20:32)
[2018-03-26] MEDS: ALPRAZolam 0.5 MG TABLET PO PRN (20:33)
[2018-03-27] MEDS: *HR* OxyCODONE/APAP 5/325 TABLET PO PRN ×3 (00:48→20:37)
[2018-03-27] MEDS: ALPRAZolam 0.5 MG TABLET PO PRN ×2 (03:43→20:37)
[2018-03-27] MEDS: Ascorbic Acid 500 MG TABLET PO SCH (07:01)
[2018-03-27] MEDS: Maxitrol OPTH SUSP 5 ML BOTTLE LEFT EYE SCH (08:10)
[2018-03-27] MEDS: Isosorbide MONOnitrate (24 HR) 30 MG TAB.ER.24H PO SCH (08:10)
[2018-03-27] MEDS: Cyanocobalamin (B-12) 1,000 MCG TABLET PO SCH (08:11)
[2018-03-27] MEDS: Metoprolol XL (24 HR) Succ 50 MG TAB.ER.24H PO SCH (08:11)
[2018-03-27] MEDS: Finasteride 5 MG TABLET PO SCH (08:13)
[2018-03-27] MEDS: *HR* Rivaroxaban 10 MG TABLET PO SCH (20:37)
[2018-03-27] MEDS: Melatonin 3 MG TABLET PO PRN (20:38)
[2018-03-28] MEDS: Ascorbic Acid 500 MG TABLET PO SCH (06:43)
[2018-03-28] MEDS: Maxitrol OPTH SUSP 5 ML BOTTLE LEFT EYE SCH (09:10)
[2018-03-28] MEDS: Cyanocobalamin (B-12) 1,000 MCG TABLET PO SCH (09:13)
[2018-03-28] MEDS: Metoprolol XL (24 HR) Succ 50 MG TAB.ER.24H PO SCH (09:13)
[2018-03-28] MEDS: Isosorbide MONOnitrate (24 HR) 30 MG TAB.ER.24H PO SCH (09:14)
[2018-03-28] MEDS: Finasteride 5 MG TABLET PO SCH (09:15)
[2018-03-28] MEDS: *HR* Rivaroxaban 10 MG TABLET PO SCH (18:18)
[2018-03-28] MEDS: ALPRAZolam 0.5 MG TABLET PO PRN (21:15)
[2018-03-28] MEDS: Melatonin 3 MG TABLET PO PRN (21:15)
[2018-03-28] MEDS: *HR* OxyCODONE/APAP 5/325 TABLET PO PRN (21:16)
[2018-03-29] MEDS: Ascorbic Acid 500 MG TABLET PO SCH (07:13)
[2018-03-29] MEDS: Isosorbide MONOnitrate (24 HR) 30 MG TAB.ER.24H PO SCH (08:22)
[2018-03-29] MEDS: Metoprolol XL (24 HR) Succ 50 MG TAB.ER.24H PO SCH (08:22)
[2018-03-29] MEDS: Cyanocobalamin (B-12) 1,000 MCG TABLET PO SCH (08:23)
[2018-03-29] MEDS: traMADol 50 MG TABLET PO PRN (08:23)
[2018-03-29] MEDS: Maxitrol OPTH SUSP 5 ML BOTTLE LEFT EYE SCH (08:26)
[2018-03-29] MEDS: Finasteride 5 MG TABLET PO SCH (08:32)
[2018-03-29] MEDS: *HR* Rivaroxaban 10 MG TABLET PO SCH (16:50)
--- NOTE | 2018-03-29 20:08 | Internal Med Progress Note ---
Date of Encounter: 03/29/18 Time of Encounter: 19:50 - Assessment and plan (1) Hip fracture Current Visit: No Status: Acute Assessment and plan: March 17. Status post IM nailing repair. Continue PT and OT intervention with Xarelto. March 24. Continue therapy, Xarelto, and WESLEY hose. Qualifiers: Encounter type: initial encounter Fracture type: closed Laterality: right Qualified Code(s): S72.001A - Fracture of unspecified part of neck of right femur, initial encounter for closed fracture (2) CKD (chronic kidney disease) stage 3, GFR 30-59 ml/min Current Visit: Yes Status: Chronic Assessment and plan: March 17. Monitor renal indices. March 22. Creatinine has risen to 1.85 with estimated GFR decreasing to 35. Discontinue Lasix. Will use WESLEY hose for right leg edema. March 24. BUN and creatinine are improved to 33 and 1.23 respectively with estimated GFR 56. Continue present regimen. March 26. BUN and creatinine are further improved to 25 and 1.16 respectively with estimated GFR 60. Continue present regimen. March 29. Recheck labs in a.m. (3) Hypertension Current Visit: No Status: Chronic Assessment and plan: March 17. Continue lisinopril and metoprolol and monitor blood pressure. March 26. Continue lisinopril. Increase Toprol-XL to 75 mg daily. Qualifiers: Hypertension type: essential hypertension Qualified Code(s): I10 - Essential (primary) hypertension (4) Dementia Current Visit: No Status: Chronic Assessment and plan: March 17. Continue Aricept and Namenda Qualifiers: Dementia type: vascular dementia Dementia behavioral disturbance: without behavioral disturbance Qualified Code(s): F01.50 - Vascular dementia without behavioral disturbance (5) Atrial fibrillation Current Visit: No Status: Chronic Assessment and plan: March 17. Continue Xarelto and metoprolol. Qualifiers: Atrial fibrillation type: persistent Qualified Code(s): I48.1 - Persistent atrial fibrillation (6) CHF (congestive heart failure) Current Visit: No Status: Chronic Assessment and plan: March 17. BN peptide pending. Reduce Lasix to 20 mg daily because of azotemia. March 19. Review of [place] archives show echocardiogram 05/08/2017 with LVEF of 55%. There was mild concentric LVH with the interventricular septum and posterior wall thickness measurements elevated at 1.36 and 1.37 cm respectively. There was LAE at 4.20 cm. There was reported severe BERNIE without measurement recorded. E/A ratio could not be done because of atrial fibrillation. There was elevated RVSP estimated at 56 mmHg. He is asymptomatic at present. Continue present regimen. March 26. He is asymptomatic however BN peptide has risen to 614. Increase Toprol-XL and start Imdur. Continue lisinopril. March 29. Recheck labs in a.m. Qualifiers: Heart failure type: diastolic Heart failure chronicity: chronic Qualified Code(s): I50.32 - Chronic diastolic (congestive) heart failure (7) Anemia Current Visit: No Status: Acute Assessment and plan: March 17. Anemia testing showed iron 40, transferrin saturation 70%, transferrin 172, ferritin 172, B12 239, and folate 11.2. He will be given a B12 injection and started on oral B12 supplement. Ferrous sulfate and ascorbic acid will also be started. March 19. Monitor CBC. Continue ferrous sulfate and ascorbic acid with oral B12 supplement. March 22. Hemoglobin stable at 8.8. Continue to monitor March 24. Hemoglobin decreased 8.2. Continue ferrous sulfate with ascorbic acid and monitor CBC. March 29. Recheck labs in a.m. Qualifiers: Anemia type: unspecified type Qualified Code(s): D64.9 - Anemia, uns pecified (8) Urinary retention Current Visit: Yes Status: Acute Assessment and plan: March 17. Continue Proscar and Flomax. Attempt discontinuation of catheter tomorrow. March 22. Voiding without difficulty with Negro catheter discontinued. (9) Hyperkalemia Current Visit: Yes Status: Acute Assessment and plan: March 22. Discontinue supplemental potassium and monitor labs. March 24. Potassium decreased to 5.4. Azotemia improved. Continue to monitor. March 26. Potassium further decreased 5.3. Azotemia improved. Continue present regimen. March 29. Recheck labs in a.m. - Subjective Interval history: March 17. He has no new complaints. He states he feels the urge to urinate but had forgotten he had a Negro catheter in place. March 19. He has no new complaints. He denies pain. March 22. He has no new complaints. He feels he is getting stronger. March 24. He has no new complaints and feels better. He denies significant pain in his right hip. Nursing staff reports he has resisted wearing WESLEY hose. March 26. He has no new complaints. He denies pain or dyspnea. March 29. He has no new complaints - Constitutional Vitals: Temp Pulse Resp BP Pulse Ox 97.6 F 81 17 130/52 95 03/29/18 18:33 03/29/18 18:33 03/29/18 18:33 03/29/18 18:33 03/29/18 18:33 Exam: He is resting comfortably in bed and appears in no acute distress. Left leg shows trace edema and right leg shows 2-3+ edema. Lungs are clear. Heart is irregularly irregular. Internal Medicine: Result - Labs CBC & Chem 7: 03/26/18 06:44 03/26/18 06:44 - ABG Interpretation ABG results: PT/INR, D-dimer PT 13.0 Seconds (9.4-12.1) H 03/16/18 05:33 - VTE Documentation of Mechanical Device: Graduated compression elastic hosiery Consult Discharge Plan - Plan Referrals: NONE,PCP [Primary Care Provider] - 1 week
[2018-03-29] MEDS: Melatonin 3 MG TABLET PO PRN (20:19)
[2018-03-29] MEDS: ALPRAZolam 0.5 MG TABLET PO PRN (22:10)
[2018-03-30] MEDS: *HR* OxyCODONE/APAP 5/325 TABLET PO PRN
[2018-03-30] MEDS: Ascorbic Acid 500 MG TABLET PO SCH (06:19)
[2018-03-30 07:00] LABS: Basophils % 0.7 %; Eosinophils # 0.2 K/mcL (0.0-0.6); Eosinophils % 3.4 %; Hematocrit 25.3 % (37.5-50.1); Hemoglobin 8.2 g/dL (12.9-16.9); Immature Granulocytes % 0.2 % (0-4); Lymphocytes # 0.5 K/mcL (0.6-4.6); Lymphocytes % 12.1 %; Mean Corpuscular HGB Conc 32.4 g/dL (31.6-35.5); Mean Corpuscular Volume 98.8 fL (83.0-100.0); Mean Platelet Volume 10.5 fL (9.4-12.4); Monocytes # 0.3 K/mcL (0.0-1.3); Monocytes % 7.8 %; Neutrophils # 3.3 K/mcL (1.6-8.9); Platelet Count 136 K/mcL (140-400); Red Blood Count 2.56 M/mcL (4.19-5.50); Red Cell Distribution Width 14.6 % (11.5-14.5); Segmented Neutrophils % 75.8 %
[2018-03-30 07:19] LABS: BUN/Creatinine Ratio 19 (6-26); Blood Urea Nitrogen 25 mg/dL (8-23); Calcium 8.9 mg/dL (8.6-10.3); Carbon Dioxide 28 mEq/L (23-29); Chloride 102 mEq/L (98-107); Glucose 86 mg/dL (70-105); Osmolality,Calculated 284 (280-300); Potassium 4.6 mEq/L (3.5-5.1); Sodium 135 mEq/L (136-145); eGFR For Non-African Americans 52 (> 60)
[2018-03-30 11:23] VITALS: BP 134/65
--- NOTE | 2018-03-30 15:17 | Discharge Summary ---
Date of Encounter: 03/30/18 Time of Encounter: 15:10 - Discharge Diagnosis (1) Hip fracture Priority: Primary Status: Acute Qualifiers: Encounter type: initial encounter Fracture type: closed Laterality: right Qualified Code(s): S72.001A - Fracture of unspecified part of neck of right femur, initial encounter for closed fracture (2) CKD (chronic kidney disease) stage 3, GFR 30-59 ml/min Priority: Secondary Status: Chronic (3) Hypertension Priority: Secondary Status: Chronic Qualifiers: Hypertension type: essential hypertension Qualified Code(s): I10 - Essential (primary) hypertension (4) Dementia Priority: Secondary Status: Chronic Qualifiers: Dementia type: vascular dementia Dementia behavioral disturbance: without behavioral disturbance Qualified Code(s): F01.50 - Vascular dementia without behavioral disturbance (5) Atrial fibrillation Priority: Secondary Status: Chronic Qualifiers: Atrial fibrillation type: persistent Qualified Code(s): I48.1 - Persistent atrial fibrillation (6) CHF (congestive heart failure) Priority: Secondary Status: Chronic Qualifiers: Heart failure type: diastolic Heart failure chronicity: chronic Qualified Code(s): I50.32 - Chronic diastolic (congestive) heart failure (7) Anemia Priority: Secondary Status: Acute Qualifiers: Anemia type: unspecified type Qualified Code(s): D64.9 - Anemia, unspecified (8) Urinary retention Priority: Secondary Status: Acute (9) Hyperkalemia Priority: Secondary Status: Acute Hospital course: Mr. Sands is a 87 year old male who was transferred to [facility] swing bed after March 08 hospitalization at [facility] for right hip fracture from a fall. He underwent intramedullary nail fixation by Dr. Gottlieb. His postop course was pertinent for anemia requiring 2 units packed red blood cells transfusion. He also developed MIRIAM and required IV fluids and Negro catheter. He was discharged to [facility] swing bed for therapy prior to returning to independent living at home. Initial orders were written by the discharging physicians at [facility]. I saw him on March 16 and performed a swing bed history and physical. He had physical therapy and occupational therapy evaluation with ongoing intervention. He made satisfactory progress. Xarelto was used for DVT prophylaxis and atrial fibrillation. Creatinine fluctuated throughout hospitalization. It was 1.32 on day of discharge. BUN improved to 25. He was asymptomatic. BN peptide also showed fluctuation but was stable at 486 on day of discharge. He was asymptomatic. He was started on Toprol-XL and Imdur. Lisinopril was continued. This regimen will be continued at home. Anemia testing showed iron 40, transferrin saturation 70%, transferrin 172, ferritin 172, B12 239, and folate 11.2. He was given a B12 injection and started on oral B12 supplement. Ferrous sulfate ascorbic acid were also started and will be continued at discharge. Negro catheter was discontinued and he was able to void spontaneously. Hyperkalemia resolved off potassium supplement. There was can be monitored by his PCP. On March 30 he stated he wished to be discharged home. He will follow with his PCP within 1 week. He will follow with the orthopedist as directed. - Time Spent with Patient Total time spent providing and/or coordinating discharge services: - Discharge Medications Prescriptions: Ascorbic Acid [Vitamin C] 500 mg PO 0630 #30 tablet Cyanocobalamin (B-12) [Vitamin B12] 1,000 mcg PO DAILY #30 tablet Ferrous Sulfate 325 mg PO 0630 #30 tablet Isosorbide MONOnitrate (24 HR) [Imdur] 30 mg PO DAILY #30 tab.er.24h Metoprolol XL (24 HR) Succ [Toprol Xl] 75 mg PO DAILY #45 tab.er.24h Omeprazole [PriLOSEC] 20 mg PO DAILY PRN #30 capsule.dr TORO Reason: Dyspepsia Rivaroxaban [Xarelto] 10 mg PO 1700 #30 tablet Home Medications: Atorvastatin Calcium [Lipitor] 20 mg PO HS 05/07/17 [History] Donepezil [Aricept] 10 mg PO HS 05/07/17 [History] Lisinopril [Zestril] 10 mg PO DAILY 03/08/18 [History] Memantine HCl 10 mg PO BID 03/08/18 [History] Melatonin 3 mg PO HS PRN tablet 03/15/18 [Rx] Elian/Poly/Dex Opth SUSP [Maxitrol OPTH SUSP] 1 drop LEFT EYE TID bottle 03/15/18 [Rx] Tamsulosin [Flomax] 0.4 mg PO DAILY capsule 03/15/18 [Rx] Ascorbic Acid [Vitamin C] 500 mg PO 0630 #30 tablet 03/30/18 [Rx] Cyanocobalamin (B-12) [Vitamin B12] 1,000 mcg PO DAILY #30 tablet 03/30/18 [Rx] Ferrous Sulfate 325 mg PO 0630 #30 tablet 03/30/18 [Rx] Furosemide [Lasix] 20 mg PO DAILY #30 tablet 03/30/18 [Rx] Isosorbide MONOnitrate (24 HR) [Imdur] 30 mg PO DAILY #30 tab.er.24h 03/30/18 [Rx] Metoprolol XL (24 HR) Succ [Toprol Xl] 75 mg PO DAILY #45 tab.er.24h 03/30/18 [Rx] Omeprazole [PriLOSEC] 20 mg PO DAILY PRN #30 capsule.dr 03/30/18 [Rx] Rivaroxaban [Xarelto] 10 mg PO 1700 #30 tablet 03/30/18 [Rx] Allergies/Adverse Reactions: Allergy/AdvReac Type Severity Reaction Status Date / Time No Known Allergies Allergy Verified 06/24/17 10:02 Date of admission: 03/15/18 16:44 Primary care physician: PCP NONE Consults: 03/15/18 16:33 Consult to Occupational Therapy [CONS] Routine Comment: eval, develop and implement POC Reason for Consult: eval, develop and implement POC Does patient have active BEDREST order?: No Is patient medically & hemodynamically stable?: Yes Consult to Physical Therapy [CONS] Routine Comment: eval, develop and implement POC Reason for Consult: eval, develop and implement POC Does patient have active BEDREST order?: No Is patient medically & hemodynamically stable?: Yes Consult to Field Services Director [CONS] Routine Reason for SW Consult: may need home health upon discharge - Constitutional Vitals: Temp Pulse Resp BP Pulse Ox 97.2 F L 70 16 134/65 99 03/30/18 11:22 03/30/18 11:22 03/30/18 11:22 03/30/18 11:22 03/30/18 11:22 - Patient Status Disposition: Home Health Service - Discharge Instructions Follow Up With: NONE,PCP [Primary Care Provider] - 1 week - Diet and Activity Activity: as per physical therapy Diet: low salt diet - VTE Documentation of Mechanical Device: Graduated compression elastic hosiery
--- NOTE | 2018-03-30 15:25 | Physician Discharge Referral ---
Home Health/Hosp Referral Info Transfer to: Home Health Attending Provider: Garrett Provider in Charge Post Discharge: PCP - Diagnosis (1) Hip fracture Priority: Primary Status: Acute (2) CKD (chronic kidney disease) stage 3, GFR 30-59 ml/min Priority: Secondary Status: Chronic (3) Hypertension Priority: Secondary Status: Chronic (4) Dementia Priority: Secondary Status: Chronic (5) Atrial fibrillation Priority: Secondary Status: Chronic (6) CHF (congestive heart failure) Priority: Secondary Status: Chronic (7) Anemia Priority: Secondary Status: Acute (8) Urinary retention Priority: Secondary Status: Resolved (9) Hyperkalemia Priority: Secondary Status: Resolved - Respiratory Orders Smoking Cessation: Smoking cessation has been advised. For more information, call the [place] Tobacco Quit Line at 5-891-MZQD-NOW. - Diet/Nutrition Diet/Nutrition Orders: Cardiac - Activity Activity Orders: Walker - Services Needed Following services are medically necessary services: Nursing, Home Health Aide, Physical Therapy, Occupational Therapy Other Treatments: CBC with differential, BMP, BNP peptide in one week - Transfer Medications Prescriptions: Ascorbic Acid [Vitamin C] 500 mg PO 0630 #30 tablet Cyanocobalamin (B-12) [Vitamin B12] 1,000 mcg PO DAILY #30 tablet Ferrous Sulfate 325 mg PO 0630 #30 tablet Isosorbide MONOnitrate (24 HR) [Imdur] 30 mg PO DAILY #30 tab.er.24h Metoprolol XL (24 HR) Succ [Toprol Xl] 75 mg PO DAILY #45 tab.er.24h Omeprazole [PriLOSEC] 20 mg PO DAILY PRN #30 capsule.dr TORO Reason: Dyspepsia Rivaroxaban [Xarelto] 10 mg PO 1700 #30 tablet Home Medications: Atorvastatin Calcium [Lipitor] 20 mg PO HS 05/07/17 [History] Donepezil [Aricept] 10 mg PO HS 05/07/17 [History] Lisinopril [Zestril] 10 mg PO DAILY 03/08/18 [History] Memantine HCl 10 mg PO BID 03/08/18 [History] Melatonin 3 mg PO HS PRN tablet 03/15/18 [Rx] Elian/Poly/Dex Opth SUSP [Maxitrol OPTH SUSP] 1 drop LEFT EYE TID bottle 03/15/18 [Rx] Tamsulosin [Flomax] 0.4 mg PO DAILY capsule 03/15/18 [Rx] Ascorbic Acid [Vitamin C] 500 mg PO 0630 #30 tablet 03/30/18 [Rx] Cyanocobalamin (B-12) [Vitamin B12] 1,000 mcg PO DAILY #30 tablet 03/30/18 [Rx] Ferrous Sulfate 325 mg PO 0630 #30 tablet 03/30/18 [Rx] Furosemide [Lasix] 20 mg PO DAILY #30 tablet 03/30/18 [Rx] Isosorbide MONOnitrate (24 HR) [Imdur] 30 mg PO DAILY #30 tab.er.24h 03/30/18 [Rx] Metoprolol XL (24 HR) Succ [Toprol Xl] 75 mg PO DAILY #45 tab.er.24h 03/30/18 [Rx] Omeprazole [PriLOSEC] 20 mg PO DAILY PRN #30 capsule.dr 03/30/18 [Rx] Rivaroxaban [Xarelto] 10 mg PO 1700 #30 tablet 03/30/18 [Rx] Allergies/Adverse Reactions: Allergy/AdvReac Type Severity Reaction Status Date / Time No Known Allergies Allergy Verified 06/24/17 10:02 Certification: Further, I certify that my clinical findings support that this patient is homebound (i.e. absences from home require considerable and taxing effort and are for medical reasons or mormonism services or infrequently or short duration when for other reasons) because: Homebound Reason: Leaving home requires considerable and taxing effort due to condition (Impaired mobility secondary to hip fracture) Attestation: My signature below is to certify that this patient is under my care and that I, or nurse practitioner, or a physician's retail sales assistant working with me, has a [id number] encounter with this patient.
== END 2018-03-30 16:00 | disposition home health service (06) | DRG 560 ==
LOC: INPPIK 16:44
PROVIDERS: ADMIT Internal Medicine; ATTEND Internal Medicine